=== PATIENT | male | born 1970 | race Caucasian/White ===

== ENCOUNTER 2017-10-26 14:16 | Outpatient (CLI) | payer BC ==
--- NOTE | 2017-10-27 16:01 | CT ---
CT OF THE PARANASAL SINUSES: Date: 10-27-17 Comparison: None. History: Chronic sinus infections, subacute maxillary sinusitis. Technique: Serial axial CT imaging at 2 mm intervals from skull base through centrum semiovale withou t contrast. Coronal and sagittal reformatted imaging obtained. FINDINGS: Imaged brain parenchyma appears grossly unremarkable. The frontal sinuses, sphenoid sinuses, ethmoid air cells, maxillary sinuses, and mastoid air cells appear unremarkable. No mucosal thickening or air fluid levels are seen. Nasal septum is midline. Outflow tract of bilateral maxillary sinuses and frontal sinuses is patent a nd clear. Osseous structures are unremarkable. IMPRESSION: 1. Unremarkable CT examination of the paranasal sinuses. POS: [facility]
== END 2017-10-26 14:17 | disposition home or self-care (01) ==
LOC: SCSCT 14:16
PROVIDERS: ATTEND Family Medicine
DX: J01.00 Acute maxillary sinusitis, unspecified (principal)